=== PATIENT | male | born 1980 | race Caucasian/White ===

== ENCOUNTER 2022-04-16 10:37 | Observation (INO) | payer BC ==
[2022-04-16] MEDS ORDERED: MORPHINE 4 MG/ML SYR ONE (11:01)
[2022-04-16] MEDS ORDERED: ONDANSETRON 4 MG/2 ML VIAL ONE ×3 (11:01→14:33)
[2022-04-16] MEDS ORDERED: NA CHLORIDE 0.9% 1,000 ML ONE (11:02)
[2022-04-16 11:19] LABS: Absolute Lymphocytes (CBC) 1.4 K/uL (0.7-4.9); Hematocrit 48.9 % (39.6-49.0); Lymphocytes % 13.8 % (15.3-44.8); MCV 84.6 fL (80-100); RBC Red Blood Cell Count 5.78 M/uL (4.33-5.43)
[2022-04-16 11:36] LABS: Albumin 4.5 g/dL (3.4-5.0); Bilirubin Total 0.6 mg/dL (0.2-1.0); Potassium 4.8 mmol/L (3.5-5.1); Protein, Total 8.2 g/dL (6.4-8.2)
--- NOTE | 2022-04-16 12:05 | RAD REPORT ---
EXAM DESCRIPTION: CTAbdomen Pelvis W Contrast - 04/16/2022 11:59 am CLINICAL HISTORY: Abdominal pain. RLQ PAIN COMPARISON: No comparisons TECHNIQUE: Biphasic CT imaging of the abdomen and pelvis was performed with 100 ml non-ionic IV cont rast. All CT scans are performed using dose optimization technique as appropriate and may include automated exposure control or mA/KV adjustment according to patient size. FINDINGS: The lung bases are clear. The liver, spleen, pancreas, adrenal glands and kidneys are within normal limits. No bowel obstruction, free air, free fluid or abscess. Sigmoid diverticulosis coli is present without diverticulitis. The appendix is dilated to 18 mm and fluid-filled with surrounding subtle developing inflammation. No evidence of significant lymphadenopathy. No suspicious bony findings. IMPRESSION: Acute appendicitis.
[2022-04-16] MEDS ORDERED: NA CHLORIDE 0.9% 100 ML ONE (12:23)
[2022-04-16] MEDS ORDERED: PIPERACIL/TAZO 3.375 GM VIAL IV ONE (12:23)
[2022-04-16 12:26] LABS: Urine Blood Negative (Negative); Urine Glucose Negative (Negative); Urine Protein Negative (Negative); Urine pH 6.5 (5.0-7.0)
[2022-04-16 12:48] LABS: SARS-CoV-2 Antigen Rapid Res Negative (Negative)
--- NOTE | 2022-04-16 12:49 | EDPHYS ---
Physician Documentation [facility] Name: Edward Lowery Age: 41 yrs Sex: Male : 1980 Arrival Date: 04/16/2022 Time: 10:39 Bed 15 Private MD: ED Physician Arden Rinaldi HPI: 04/16 12:52 This 41 yrs old Male presents to ER via Ambulatory with complaints of Abdominal Pain - rt RLQ, Vomiting - 8x since 8am. 12:52 The patient presents to the emergency department with nausea, vomiting, abdominal pain, rt of the right lower quadrant, described as sharp, and does not radiate. Onset: The symptoms/episode began/occurred 7 AM this morning. The symptoms are aggravated by nothing. The symptoms are alleviated by nothing. Associated signs and symptoms: Pertinent positives: abdominal pain, nausea, vomiting. Severity of symptoms: At their worst the symptoms were severe. The patient has not experienced similar symptoms in the past. Historical: - Allergies: 10:43 No Known Allergies; iw - PMHx: 10:43 Kidney stone; iw - PSHx: 10:43 None; iw - Immunization history:: Adult Immunizations unknown. - Social history:: Smoking status: Patient denies any tobacco usage or history of. - Family history:: not pertinent. ROS: 12:52 Constitutional: Negative for fever, chills, and weight loss, Eyes: Negative for injury, rt pain, redness, and discharge, Cardiovascular: Negative for chest pain, palpitations, and edema, Respiratory: Negative for shortness of breath, cough, wheezing, and pleuritic chest pain, MS/Extremity: Negative for injury and deformity, Skin: Negative for injury, rash, and discoloration, Neuro: Negative for headache, weakness, numbness, tingling, and seizure, Psych: Negative for depression, anxiety, suicide ideation, homicidal ideation, and hallucinations. 12:52 Abdomen/GI: Positive for abdominal pain, nausea and vomiting. Exam: 12:52 Constitutional: This is a well developed, well nourished patient who is awake, alert, rt and in no acute distress. Head/Face: Normocephalic, atraumatic. Chest/axilla: Normal chest wall appearance and motion. Nontender with no deformity. No lesions are appreciated. Cardiovascular: Regular rate and rhythm with a normal S1 and S2. No gallops, murmurs, or rubs. Normal PMI, no JVD. No pulse deficits. Respiratory: Lungs have equal breath sounds bilaterally, clear to auscultation and percussion. No rales, rhonchi or wheezes noted. No increased work of breathing, no retractions or nasal flaring. Skin: Warm, dry with normal turgor. Normal color with no rashes, no lesions, and no evidence of cellulitis. MS/ Extremity: Pulses equal, no cyanosis. Neurovascular intact. Full, normal range of motion. Neuro: Awake and alert, GCS 15, oriented to person, place, time, and situation. Cranial nerves II-XII grossly intact. Motor strength 5/5 in all extremities. Sensory grossly intact. Cerebellar exam normal. Normal gait. Psych: Awake, alert, with orientation to person, place and time. Behavior, mood, and affect are within normal limits. 12:52 Abdomen/GI: Tenderness with guarding to the right lower quadrant, no rebound, no distention. Vital Signs: 10:42 BP 123 / 86; Pulse 56; Resp 18 S; Temp 97.2(TE); Pulse Ox 100% on R/A; Weight 95.25 kg iw (R); Height 6 ft. 0 in. (182.88 cm) (R); 12:31 BP 144 / 79; Pulse 50; Resp 16; Pulse Ox 100% ; bp 10:42 Body Mass Index 28.48 (95.25 kg, 182.88 cm) iw MDM: 10:44 Patient medically screened. rt 12:52 Differential diagnosis: Appendicitis, kidney stone, bowel obstruction, testicular rt torsion. Data reviewed: vital signs, nurses notes, lab test result(s), radiologic studies. Consideration of Admission/Observation Patient was admitted/placed on observation. Management of patient was discussed with the following: Methodologist: General surgery will take the patient to the operating room. I considered the following discharge prescriptions or medication management in the emergency department Medications were administered in the Emergency Department. See MAR. Independent interpretation of the following test(s) in the Emergency Department CT Scan: My interpretation is No bowel obstruction, kidney stone seen, appendicitis visualized. Test considered but Not performed: Ultrasound No testicular pain, ultrasound not indicated. Response to treatment: the patient's symptoms have mildly improved after treatment. 04/16 10:53 Order name: CBC with Diff; Complete Time: 11:25 rt 04/16 10:53 Order name: CMP; Complete Time: 12:04 rt 04/16 10:53 Order name: Lipase; Complete Time: 12:04 rt 04/16 10:53 Order name: Urine Microscopic Only rt 04/16 12:16 Order name: SARS RAPID rt 04/16 12:26 Order name: Urine Dipstick-Ancillary; Complete Time: 12:27 EDMS 04/16 10:53 Order name: Urine Dipstick-Ancillary (obtain specimen); Complete Time: 12:30 rt 04/16 10:53 Order name: CT Abd/Pelvis - IV Contrast Only; Complete Time: 12:07 rt 04/16 12:27 Order name: NPO; Complete Time: 12:32 rt Administered Medications: 11:10 Drug: morphine 4 mg Route: IVP; Infused Over: 4 mins; Site: right antecubital; bp 13:05 Follow up: Response: No adverse reaction bp 11:10 Drug: Zofran (Ondansetron) 4 mg Route: IVP; Site: right antecubital; bp 13:05 Follow up: Response: No adverse reaction bp 11:10 Drug: NS 0.9% 1000 ml Route: IV; Rate: 1 bolus; Site: right antecubital; bp 13:05 Follow up: IV Status: Completed infusion; IV Intake: 1000ml bp 12:20 Drug: Zosyn (piperacillin-tazobactam) 4.5 grams Route: IVPB; Infused Over: 60 mins; bp Site: right antecubital; 13:05 Follow up: IV Status: Completed infusion; IV Intake: 100ml bp 13:03 Drug: Lactated Ringers Solution 1000 ml Route: IV; Rate: 125 ml/hr; Site: right bp antecubital; 13:05 Follow up: IV Status: Infusion continued upon admission bp Disposition Summary: 04/16/22 12:48 Hospitalization Ordered Hospitalization Status: Observation rt Provider: Po Renee rt Location: Operating Room rt Condition: Stable rt Problem: new rt Symptoms: have improved rt Bed/Room Type: Standard rt Room Assignment: rt Diagnosis - Acute appendicitis with localized peritonitis rt Forms: - Medication Reconciliation Form rt - SBAR form rt Signatures: Dispatcher [employer] Cammie Retana RN RN iw Peltier, Brian, RN RN Arden Macario MD MD rt Corrections: (The following items were deleted from the chart) 10:43 10:43 PMHx: None; [facility]tta hitch[facility]
--- NOTE | 2022-04-16 12:49 | ER ---
Nurse's Notes [facility] Name: Edward Lowery Age: 41 yrs Sex: Male : 1980 Arrival Date: 04/16/2022 Time: 10:39 Bed 15 Private MD: Diagnosis: Acute appendicitis with localized peritonitis Presentation: 04/16 10:42 Chief complaint: Patient states: RLQ pain that began this morning, reports vomiting, iw denies diarrhea. Pt clammy and uncomfortable during triage. Coronavirus screen: vomiting. Ebola Screen: Patient denies travel to an Ebola-affected area in the 21 days before illness onset. Initial Sepsis Screen: Does the patient meet any 2 criteria? No. Patient's initial sepsis screen is negative. Does the patient have a suspected source of infection? No. Patient's initial sepsis screen is negative. Risk Assessment: Do you want to hurt yourself or someone else? Patient reports no desire to harm self or others. Onset of symptoms was April 16, 2022. 10:42 Acuity: FITO 3 iw 10:42 Method Of Arrival: Ambulatory iw Triage Assessment: 10:45 General: Appears distressed, uncomfortable, Behavior is calm, cooperative, appropriate bp for age. Pain: Complains of pain in right lower quadrant. EENT: No deficits noted. Neuro: No deficits noted. Cardiovascular: No deficits noted. Respiratory: No deficits noted. GI: Reports lower abdominal pain, nausea, vomiting. : No signs and/or symptoms were reported regarding the genitourinary system. Derm: No deficits noted. Musculoskeletal: No deficits noted. Historical: - Allergies: 10:43 No Known Allergies; iw - PMHx: 10:43 Kidney stone; iw - PSHx: 10:43 None; iw - Immunization history:: Adult Immunizations unknown. - Social history:: Smoking status: Patient denies any tobacco usage or history of. - Family history:: not pertinent. Screenin:45 [facility] ED Fall Risk Assessment (Adult) History of falling in the last 3 months, bp including since admission No falls in past 3 months (0 pts). Abuse screen: Denies threats or abuse. Denies injuries from another. Nutritional screening: No deficits noted. Tuberculosis screening: No symptoms or risk factors identified. Assessment: 10:45 General: SEE TRIAGE NOTE. bp 12:30 Reassessment: PER MD, PT ACUTE APPY. SURG C/S PENDING. bp 13:03 Reassessment: PT TO OR FOR APPENDECTOMY. bp Vital Signs: 10:42 BP 123 / 86; Pulse 56; Resp 18 S; Temp 97.2(TE); Pulse Ox 100% on R/A; Weight 95.25 kg iw (R); Height 6 ft. 0 in. (182.88 cm) (R); 12:31 BP 144 / 79; Pulse 50; Resp 16; Pulse Ox 100% ; bp 10:42 Body Mass Index 28.48 (95.25 kg, 182.88 cm) iw ED Course: 10:39 Patient arrived in ED. am2 10:40 Arden Rinaldi MD is Attending Physician. rt 10:42 Arm band placed on. iw 10:43 Triage completed. iw 10:45 Patient has correct armband on for positive identification. Bed in low position. Call bp light in reach. Side rails up X2. Adult w/ patient. 10:53 Moisés Richards, RN is Primary Nurse. bp 11:10 Inserted saline lock: 20 gauge in right antecubital area, using aseptic technique. bp Blood collected. 12:00 CT Abd/Pelvis - IV Contrast Only In Process Unspecified. EDMS 12:29 SARS RAPID Sent. bc6 12:48 Po Renee MD is Hospitalizing Provider. rt 13:03 No provider procedures requiring assistance completed. Patient admitted, IV remains in bp place. Administered Medications: 11:10 Drug: morphine 4 mg Route: IVP; Infused Over: 4 mins; Site: right antecubital; bp 13:05 Follow up: Response: No adverse reaction bp 11:10 Drug: Zofran (Ondansetron) 4 mg Route: IVP; Site: right antecubital; bp 13:05 Follow up: Response: No adverse reaction bp 11:10 Drug: NS 0.9% 1000 ml Route: IV; Rate: 1 bolus; Site: right antecubital; bp 13:05 Follow up: IV Status: Completed infusion; IV Intake: 1000ml bp 12:20 Drug: Zosyn (piperacillin-tazobactam) 4.5 grams Route: IVPB; Infused Over: 60 mins; bp Site: right antecubital; 13:05 Follow up: IV Status: Completed infusion; IV Intake: 100ml bp 13:03 Drug: Lactated Ringers Solution 1000 ml Route: IV; Rate: 125 ml/hr; Site: right bp antecubital; 13:05 Follow up: IV Status: Infusion continued upon admission bp Medication: 10:45 VIS not applicable for this client. bp Intake: 13:05 IV: 100ml; Total: 100ml. bp 13:05 IV: 1000ml; Total: 1100ml. bp Outcome: 12:48 Decision to Hospitalize by Provider. rt 13:03 Admitted to OR accompanied by nurse, family with patient, via stretcher, with chart. bp 13:03 Condition: stable 13:03 Instructed on the need for admit. 13:06 Patient left the ED. bp Signatures: Dispatcher [employer] EDCammie Valera RN RN iw Krissy Tsang am2 Moisés Richards RN RN bp Arden Rinaldi MD MD rt Kimmy Quinteros bc6 Corrections: (The following items were deleted from the chart) 10:43 10:43 PMHx: None; [facility]
[2022-04-16] MEDS ORDERED: Ringers Lactate 1,000 ML IV ONE (12:59)
[2022-04-16 13:01] LABS: Urine Bacteria None Seen /HPF (<20); Urine Mucus Slight /HPF (None Seen); Urine RBC <5 /HPF (None Seen)
[2022-04-16] MEDS ORDERED: LIDOCAINE 2% MPF 5 ML VIAL ONE (13:35)
[2022-04-16] MEDS ORDERED: propofoL 200 MG/20 ML VIAL IV ONE (13:35)
[2022-04-16] MEDS ORDERED: ROCURONIUM 50 MG/5 ML VIAL IV ONE ×2 (13:35→15:21)
[2022-04-16] MEDS ORDERED: FENTANYL CITR 100 MCG/2 ML ONE ×2 (13:36→15:25)
[2022-04-16] MEDS ORDERED: dexAMETHasone 10 MG/ML VIAL ONE (13:36)
[2022-04-16] MEDS ORDERED: KETOROLAC 30 MG/ML INJ ONE (13:36)
[2022-04-16] MEDS ORDERED: GLYCOPYRROLATE 0.2 MG/ML SYR ONE (15:26)
[2022-04-16] MEDS ORDERED: NEOSTIGMINE 1 MG/ML -10 ML VIAL ONE (15:26)
[2022-04-16] MEDS ORDERED: SUGAMMADEX SODIUM 200 MG/2 ML VIAL IV ONE (15:41)
--- NOTE | 2022-04-16 15:48 | P.HP ---
Date of Service: 04/16/22 PC: This 41-year-old male presented to emergency room with severe right lower quadrant abdominal pain for diagnosis and treatment. HPC: Patient woke up this morning with right lower quadrant abdominal pain, says it was intense and constant. Since then he has been uncomfortable. In the emergency room was evaluated. Next field PSHx: Negative PMHx: Kidney stones Social Hx: No known allergies Sys R: No cough, wheeze, shortness of breath. No chest pain or palpitations. No urinary complaints. O/E: Awake alert vital signs are stable afebrile HEENT: Within normal limits Chest: Chest movement equal bilaterally Abd: Tender with guarding in the right lower quadrant New Point: Intact Data: CT scan supports clinical diagnosis of acute appendicitis Impression: Acute abdomen with appendicitis Plan: I will taken the operating room for laparoscopic possible open appendectomy. The risks of this procedure have been discussed. The possibility of bleeding, infection, injury to bowel surrounding structures and blood vessels was explained. The possibility of abscess formation and hernias was described. He understands wants to proceed.
--- NOTE | 2022-04-16 15:52 | P.OP ---
Preoperative diagnosis: Acute abdomen with appendicitis Postoperative diagnosis: The same Primary procedure: Laparoscopic appendectomy Secondary procedure: Vickie block Anesthesia: General Estimated blood loss: Less than 10 cc Specimen: 1 appendix Operative Technique: The patient brought the operating room and placed supine on the table. After the induction of adequate general endotracheal anesthesia, the area of the abdomen was prepped with a DuraPrep solution, he was draped in the usual aseptic manner. A subumbilical incision was made. This brought down through the skin and s ubcutaneous tissue. The Visiport was now used to carefully enter the peritoneal cavity. A 5 mm trocar was placed in the right side of the abdomen and 1 in the lower midline. With the patient placed in reverse Trendelenburg and the table turned to the left we can visualize the right lower quadrant. We could literally see the appendix sticking up out of the right lower quadrant. It was distended and markedly inflamed. A grasper was placed on the appendix. A window was made in the mesentery between the appendix and the cecum. The linear stapler was now introduced across the base of the cecum and fired. The mesentery of the appendix was taken down using a vascular reload. At this point the specimen was then placed into an Endo Catch and brought out through the umbilical trocar site. At this point the abdomen was inspected to ensure adequate hemostasis. We checked our suture lines which were intact. The 5 mm trocar was then placed in the right upper quadrant contour. A tap block was performed using 0.25% Marcaine. The umbilical trocar site was now approximated we could see there was a fascial defect preoperatively hence after placing [address] another 2 to pull together there is mild umbilical hernia that the patient had. At this point the pneumoperitoneum was collapsed, the trocars removed, and baron were applied to the skin. At the end of the procedure he was stable and sent to the recovery room. Needle sponge instrument count were correct. No drains were placed. Complications: None Transferred to: Recovery Room Condition: Good
[2022-04-16] MEDS: MEPERIDINE HCL 25 MG/ML SYR ONE ×2 (15:53→16:00)
[2022-04-16] MEDS ORDERED: MORPHINE 4 MG/ML SYR IV PRN (15:58)
[2022-04-16] MEDS ORDERED: HYDROCODONE/APAP 7.5/325 MG TAB PO PRN (16:00)
[2022-04-16 16:10] VITALS: O2SAT 97
[2022-04-16 16:36] VITALS: BMI 28.5
[2022-04-16] MEDS: PIPER TAZO 3.375 GM in NA CHLORIDE 0.9% 100 ML IV SCH (17:06)
[2022-04-17] MEDS: PIPER TAZO 3.375 GM in NA CHLORIDE 0.9% 100 ML IV SCH ×2 (01:07→08:23)
[2022-04-17 12:49] VITALS: BP 133/73; TEMP 98.2
== END 2022-04-17 13:47 | disposition home or self-care (01) ==
LOC: ER 10:37 → 2ND 16:15
PROVIDERS: ADMIT Surgery; ATTEND Surgery
PROC: 0DTJ4ZZ Resection of Appendix, Percutaneous Endoscopic Approach (ICD-10-PCS; principal; 2022-04-16 13:00)
DX: K35.80 Unspecified acute appendicitis (principal); Z20.822 Contact with and (suspected) exposure to COVID-19
CPT/HCPCS: 96365; 96361; 85025; 36415; 88304; 83690; 80053; 74177; 94010; 96375; 99285; 87811; 44970; Q9967; J2704; J2710; J2543 ×4; J2001; J3010 ×2; J1100; J2175; J7120; J7030; J2405 ×3; 81003; 81015; G0378